=== PATIENT | female | born 1975 | race Native Hawaiian/Other Pacific Islander ===

== ENCOUNTER 2017-05-05 10:43 | Emergency (ER) | payer OTHER ==
[~2017-05-05] VITALS: Ht 157.5 cm; Wt 76.1 kg
[~2017-05-05 10:43] MED LIST: IBUP600 PO; IMOD2TAB PO; TAB-TAB PO; ZOFR4TAB3 SL
[2017-05-05 10:45] VITALS: BP 116/71; PULSE 60; RESP 18; TEMP 98.2; O2SAT 98
--- NOTE | 2017-05-05 11:01 | PD ---
HPI Chief Complaint: Musculoskeletal Complaint Time Seen by Provider: 10:58 Travel History International Travel<30 days: No Contact w/Intl Traveler<30days: No Traveled to known affect area: No History of Present Illness HPI 42-year-old female presents to emergency department with her complaining of left fourth and fifth toe pain after kicking an soccer ball this morning. She says she does not know how she injured her foot however she is having pain with walking and movement of the toes. 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 Patient is able to the fourth toe normally. Described as moderate pain. No pain to foot or ankle. She has not taken any oral medications for pain today. PFSH Past Medical History Diminished Hearing: No Pneumonia: Yes Influenza Vaccination: No ?: Not : 3 Para: 2 Miscarriage: 0 : 1 Dilation and Curettage (D&C): Yes (X1) Family History Family Hypercholesterolemia: Yes (MOTHER) Social History Alcohol Use: No Tobacco Use: No Substance Use: No Allergies-Medications (Allergen,Severity, Reaction): Coded Allergies: No Known Allergies (Unverified , 05/05/17) Reported Meds & Prescriptions Reported Meds & Active Scripts Active Hydrocodone-Acetaminophen 5-325 mg Tab 1 Tab PO Q6H PRN 5 Days Review of Systems Except as stated in HPI: all other systems reviewed are Neg Physical Exam Narrative GENERAL: Well-nourished, well-developed patient. SKIN: Focused skin assessment warm/dry. HEAD: Normocephalic. EYES: No scleral icterus. No injection or drainage. NECK: Supple, trachea midline. No JVD or lymphadenopathy. CARDIOVASCULAR: Regular rate and rhythm without murmurs, gallops, or rubs. RESPIRATORY: Breath sounds equal bilaterally. No accessory muscle use. MUSCULOSKELETAL: No cyanosis, or edema. Left fourth and fifth toe: Mild ecchymosis of the toes, crepitus with range of motion, tenderness to the base of the fifth distal phalange. Because of nerve block unable to assess sensation of the fifth toe. Fourth toe sensation intact BACK: Nontender without obvious deformity. No CVA tenderness. Data Data Last Documented VS Vital Signs Date Time Temp Pulse Resp B/P (MAP) Pulse Ox O2 Delivery O2 Flow Rate FiO2 05/05/17 10:45 98.2 60 18 116/71 (86) 98 Orders Orders Foot, Complete ([id number]) (05/05/17 ) Acetamin-Hydrocod 325-5 Mg ([place] 5-325 (05/05/17 11:30) Splint Or Brace Apply/Monitor (05/05/17 11:36) Shoe Cast (05/05/17 ) MDM Medical Decision Making Medical Screen Exam Complete: Yes Emergency Medical Condition: Yes Differential Diagnosis Fifth Toe sprain versus strain versus fracture Narrative Course 42y female present to the emergency department for evaluation of the 4th and 5th toe after kicking a soccer ball just prior to arrival. She cannot recall the mechanism in which she hurt her toe but her toes are painful to movement. Physical exam demonstrates ecchymosis to the toes without edema or crepitus. performed a digital block to the 5th toe with symptom improvement. Imaging studies- fifth phalanx fracture I discussed this case with transitions manager Dr. West and she suggested a follow- up for the next Saturday. Pain medication Pt will be discharged with hard shoe, ysabel taping, and follow up with podiatry as discussed. Weight bearing as tolerated Physician Communication Physician Communication Discussed with Dr. West. Diagnosis Primary Impression: Phalanx fracture, foot Qualified Codes: S92.515A - Nondisplaced fracture of proximal phalanx of left lesser toe(s), initial encounter for closed fracture Referrals: Sita West DPM Departure Forms: Tests/Procedures, Work Release Enter return to work date: May 08, 2017 Additional Instructions: Call Dr. West's office tomorrow for an appointment for next Saturday. She is in the office Tuesdays and . Use pain Medication as needed. Weight as tolerated on the foot Use hard shoe when walking or on feet Scripts Hydrocodone-Acetaminophen (Hydrocodone-Acetaminophen) 5-325 mg Tab 1 TAB PO Q6H Y for PAIN for 5 Days, #15 TAB 0 Refills Prov: Kelly Sampson MD 05/05/17 Disposition: 01 DISCHARGE HOME Condition: Stable Misty Augustin May 05, 2017 11:01
--- NOTE | 2017-05-05 11:27 | RADRPT ---
EXAM DATE/TIME: 05/05/2017 11:09 [facility] COMPARISON: No previous studies available for comparison. INDICATIONS : Left foot injury playing soccer today, pain worse left 5th toe area MEDICAL HISTORY : None. SURGICAL HISTORY : None. ENCOUNTER: Initial ACUITY: 1 day PAIN SCORE: 8/10 LOCATION: Left foot FINDINGS: There is an oblique fracture through the fifth proximal phalanx. This does not extend into a joint sp amadou. The distal fragment is proximally and laterally displaced. CONCLUSION: Fifth proximal phalanx fracture. Ancelmo Elizondo MD on May 05, 2017 at 11:24 Board Certified Radiologist. This report was verified electronically.
[2017-05-05] MEDS ORDERED: ACETAMINOPHEN/HYDROcodone 325 MG/5 MG TAB PO ONE (11:30)
[2017-05-05] MEDS ORDERED: HYDR-3516 PO (11:36)
--- NOTE | 2017-05-05 11:39 | PD ---
Data Data Last Documented VS Vital Signs Date Time Temp Pulse Resp B/P (MAP) Pulse Ox O2 Delivery O2 Flow Rate FiO2 05/05/17 10:45 98.2 60 18 116/71 (86) 98 Orders Orders Foot, Complete ([id number]) (05/05/17 ) Acetamin-Hydrocod 325-5 Mg ([place] 5-325 (05/05/17 11:30) Splint Or Brace Apply/Monitor (05/05/17 11:36) MDM Supervised Visit with MARTINA: Yes Narrative Course The history, exam, and medical decision-making in the associated midlevel provider note were completed with my assistance. I reviewed and agree with the findings presented. I attest that I had a [id number] encounter with the patient on the same day, and personally performed and documented my assessment and findings in the medical record. *My assessment and Findings: This is a 42-year-old female who presents to the emergency department having been kicking a soccer ball yesterday injuring her left fifth toe. Her performed a digital block and her pain improved significantly. X-ray demonstrates a proximal phalanx fracture of the left fifth digit. I think the patient can be discharged with ysabel tape and a hard shoe. We will discuss with podiatry to arrange for follow-up. Diagnosis Primary Impression: Phalanx fracture, foot Qualified Codes: S92.515A - Nondisplaced fracture of proximal phalanx of left lesser toe(s), initial encounter for closed fracture Additional Instruction: Follow up with podiatry this week. Scripts Hydrocodone-Acetaminophen (Hydrocodone-Acetaminophen) 5-325 mg Tab 1 TAB PO Q6H Y for PAIN for 5 Days, #15 TAB 0 Refills Prov: Kelly Sampson MD 05/05/17 Disposition: 01 DISCHARGE HOME Condition: Stable eKlly Sampson MD May 05, 2017 11:39
== END 2017-05-05 11:56 | disposition home or self-care (01) ==
LOC: PHEFT 10:43
DX: S92.515A Nondisplaced fracture of proximal phalanx of left lesser toe(s), initial encounter for closed fracture (principal); W21.02XA Struck by soccer ball, initial encounter; Y93.66 Activity, soccer
CPT/HCPCS: 73630; 99283; L3260